=== PATIENT | male | born 1950 | race Caucasian/White ===

== ENCOUNTER 2023-07-06 09:59 | Outpatient (RCR) | payer OTHER, SELFPAY | END 2023-07-06 17:00 | disposition home or self-care (01) | LOC: HO.WCC 09:59 | PROVIDERS: PCP Internal Medicine; Visit Provider Physician Assistant | DX: Z09 Encounter for follow-up examination after completed treatment for conditions other than malignant neoplasm (principal); L85.9 Epidermal thickening, unspecified; L80 Vitiligo; E11.65 Type 2 diabetes mellitus with hyperglycemia; E11.40 Type 2 diabetes mellitus with diabetic neuropathy, unspecified; I10 Essential (primary) hypertension; I48.91 Unspecified atrial fibrillation; I25.2 Old myocardial infarction; Z79.84 Long term (current) use of oral hypoglycemic drugs; Z87.891 Personal history of nicotine dependence; Z86.718 Personal history of other venous thrombosis and embolism | CPT/HCPCS: 99212 ==

== ENCOUNTER 2023-08-30 08:35 | Day surgery (SDC) | payer OTHER, SELFPAY ==
[2023-08-30 08:50] VITALS: BP 180/81; PULSE 98; RESP 18; TEMP 36.3; O2SAT 98; BMI 27.1
[2023-08-30 08:52] LABS: Glucose, Whole Blood 193 mg/dL (60-115)
[2023-08-30] MEDS: Lactated Ringers 1,000 ML 50 ML IVCONT (09:10)
--- NOTE | 2023-08-30 09:13 | HO.ANESPROP2 ---
HPI - Anesthesia Eval Consult details Narrative: 72 yo male patient for Colonoscopy Anesthesia Pre-Procedure Meds Is the patient on any of the following meds?: Semaglutide (Ozempic) (Last dose 08/22/23) and Any other SGL-1 drugs or drugs that delay gastric emptying (Jardiance- last dose 08/27/23) If Yes to any meds - educate patient: Pt education - increased risk of aspiration PMFSH Active Problems Active Problems: CAD with stent about 5 years ago. Denies any chest pain since DM HTN Past Medical History Medical History Diabetes Hyperlipidemia HTN (hypertension) CAD (coronary artery disease) Arrhythmia Family History Family history of problems with anesthesia: No Surgical History Surgical History Hx of heart surgery History of heart artery stent History of Problems with Anesthesia: No Social History Social History Patient Tobacco Use Status: Former Tobacco user Are you DNR?: No Advance Directives: No Advance Directives Information Provided: Yes Recently lost weight without trying: No Nutrition Risks: No Nutritional Risk Meds Allergies Allergy/AdvReac Type Severity Reaction Status Date / Time No Known Allergies Allergy Verified 08/27/23 08:39 Active Medications: Current Medications Lactated Ringer's (Lr) 1,000 mls @ 50 mls/hr IVCONT .Q20H LAUREN Last Admin: 08/30/23 09:10 Dose: 50 mls/hr Sodium Biphosphate/Sodium Phosphate (Sodium Phosphate,[place]-Dibasic 133 Ml Enema) 133 ml VA ONCE PRN PRN Reason: Poor Colonoscopy Prep Results Home Medications ?Medication ?Instructions ?Recorded ?Confirmed ?Last Taken ?Type Fish Oil 08/27/23 08/23/23 History Ozempic 08/27/23 08/22/23 History apixaban 2.5 mg tablet (Eliquis) 2.5 mg PO BID 08/27/23 08/27/23 History aspirin 81 mg capsule 81 mg PO DAILY 08/27/23 08/23/23 History atorvastatin 20 mg tablet 20 mg PO BEDTIME 08/27/23 Unknown History empagliflozin 25 mg tablet 25 mg PO DAILY 08/27/23 08/27/23 History (Jardiance) magnesium 08/27/23 Unknown History metformin 500 mg tablet 500 mg PO DAILY 08/27/23 Unknown History Exam Height,Weight and Vital Signs: Height 5 ft 10 in Weight 85.558 kg Last Vital Signs Temp 97.3 F 08/30/23 08:50 Pulse 98 08/30/23 08:50 Resp 18 08/30/23 08:50 BP 180/81 H 08/30/23 08:50 Pulse Ox 98 08/30/23 08:50 O2 Del Method Room Air 08/30/23 08:50 Pertinent Lab Results Pertinent Lab Results: Laboratory Tests 08/30/23 08:48 POC Glucose 193 H Airway Mallampati Class: III TM Dist: >3cm Neck ROM: Full Loose/Missing/Broken Teeth: Yes (Some missing teeth back. Denies broken or loose teeth ) Heart: RRR Lungs: CTAB Assessment and Plan Assessment Anesthesia Assessment: Anesthesia Plan Discussed and Chart Reviewed Final Anesthetic Review Family History of Problems with Anesthesia: No History of Problems with Anesthesia: No NPO: Yes ASA Class: III Final Preanesthetic Review: No Changes in Pt Med Stat, Meds/Allgs Chart Reviewed, Consent Obtained/Reviewed and Anes Risks/Benef Reviewed Patient Risk: Intermediate Procedure Risk: Low Anesthetic Plan Anesthetic Plan: MAC: and TIVA Disposition: Standard PACU
--- NOTE | 2023-08-30 10:52 | PM.OP ---
Brief Operative Note Date of Service: 08/30/23 Pre-op diagnosis: Screening Post-op diagnosis: other (Diverticulosis) Procedure: Colonoscopy to the cecum and TI Surgeon: Conner Buenrostro MD Anesthesia: MAC Was an Business Liaison Officer used for this Procedure?: No Estimated blood loss (mL): 0 Pathology: none sent Condition: stable Disposition: PACU
[2023-08-30 10:53] VITALS: BP 132/77; PULSE 77; RESP 16; TEMP 36.2; O2SAT 98
[2023-08-30 11:08] VITALS: BP 150/89; PULSE 80; RESP 15; TEMP 36.4; O2SAT 99
--- NOTE | 2023-08-30 11:13 | OP_ITS ---
DATE OF SERVICE: 08/30/2023 SURGEON: Conner Buenrostro MD INDICATIONS: The patient presents for evaluation of colorectal cancer screening and personal history of colon polyps. Full consent has been obtained from him for this, including risks of bleeding and perforation. PREOPERATIVE DIAGNOSIS: POSTOPERATIVE DIAGNOSIS: PROCEDURE PERFORMED: Colonoscopy to cecum and terminal ileum. ESTIMATED BLOOD LOSS: COMPLICATIONS: ANESTHESIA: Monitored anesthesia care. ASSISTANTS: SPECIMENS: PREOPERATIVE DIAGNOSES: Personal history of colon polyps and colorectal cancer screening. POSTOPERATIVE DIAGNOSES: Personal history of colon polyps, colorectal cancer screening, diverticulosis, and internal hemorrhoids. DESCRIPTION OF PROCEDURE: The patient was placed in the left lateral decubitus position. The digital rectal exam revealed no abnormalities. The Olympus video pediatric colonoscope was then entered into the rectum and advanced easily to the cecum. Once in the cecum, I did identify normal-appearing cecal pouch with appendiceal orifice and a normal-appearing ileocecal valve. The terminal ileum was cannulated and appeared normal. The scope was withdrawn back in the colon. The entire cecum and ileocecal valve appeared normal. The scope was then slowly withdrawn assessing all mucosal surfaces carefully. Preparation was excellent. I did not visualize any sign of polyps, colitis, nor angiodysplasia. There was a mild amount of sigmoid diverticulosis. In the rectum, scope was retroflexed visualizing internal hemorrhoids, but no other pathology. The rectal mucosa appeared normal. The scope was straightened and withdrawn from the patient. He tolerated the procedure well and was returned to the recovery area in stable condition. IMPRESSION: 1. Diverticulosis. 2. Internal hemorrhoids. PLAN: Given his previous history of reported polyps, I would recommend a repeat colonoscopy in 5 years. He was advised to resume his Eliquis, aspirin, fish oil, and his usual diabetes medications today. He will see me on a p.r.n. basis. MD GEOVANNY Sandoval/TIMUR / [phone]
== END 2023-08-30 11:43 | disposition home or self-care (01) ==
PROVIDERS: PCP Internal Medicine; Visit Provider Internal Medicine
PROC: 0DJD8ZZ Inspection of Lower Intestinal Tract, Via Natural or Artificial Opening Endoscopic (ICD-10-PCS; CPT 45378; principal; 2023-08-30 11:00)
DX: Z12.11 Encounter for screening for malignant neoplasm of colon (principal); Z86.010 Personal history of colon polyps; K57.30 Diverticulosis of large intestine without perforation or abscess without bleeding; K64.8 Other hemorrhoids; I10 Essential (primary) hypertension; I25.10 Atherosclerotic heart disease of native coronary artery without angina pectoris; Z95.5 Presence of coronary angioplasty implant and graft; E78.5 Hyperlipidemia, unspecified; E11.9 Type 2 diabetes mellitus without complications; Z79.01 Long term (current) use of anticoagulants; Z79.82 Long term (current) use of aspirin; Z79.84 Long term (current) use of oral hypoglycemic drugs; Z79.85 Long-term (current) use of injectable non-insulin antidiabetic drugs
CPT/HCPCS: 45378; 82947; J2704

== ENCOUNTER 2023-09-29 09:11 | Outpatient (AMB) | payer OTHER, SELFPAY ==
--- NOTE | 2023-09-29 09:15 | A.OFFVIS_ITS ---
Vital Signs 09/29/23 09:16 Height 5 ft 10 in Weight 189 lb 4 oz BMI 27.2 BP 142/70 H Blood Pressure Location Rt brachial Position Sitting Pulse 92 Intake Visit Reasons: Pilonidal cystw/o abscess Intake Note: This patient presents for an assessment for Pilonidal cyst w/o abscess. Pt c/o; reports no discharge or drainage. Operation Specialist Required: No Accompanied by: Self / Same As Patient Allergies No Known Allergies Allergy (Verified 09/29/23 09:24) Medication List - Last Reconciled 09/29/23 by Lisandro Howell MD apixaban (Eliquis) 2.5 mg PO BID aspirin 81 mg PO DAILY atorvastatin 20 mg PO BEDTIME empagliflozin (Jardiance) 25 mg PO DAILY [Fish Oil ] [magnesium ] metformin 500 mg PO DAILY [Ozempic ] HPI HPI Pilonidal cystw/o abscess: Details: 72-year-old male referred for a question of a cyst in the sacral coccygeal area. He says that he had fallen on his tailbone about a year and a half ago and has had chronic pain on the area after that accident. For the past few months he had noticed some redness in the area although he does not describe this as a lump. Denies any drainage or fluctuance. He was seen by his primary care physician and was referred to me for question of a cyst. [facility] Medical History (Updated 09/29/23 @ 09:43 by Lisandro Howell MD) Dermatitis Diabetes Hyperlipidemia HTN (hypertension) CAD (coronary artery disease) Arrhythmia Surgical History Hx of heart surgery History of heart artery stent Social History Patient Tobacco Use Status: Former Tobacco user Review of Systems Const Denies chills and Denies fever(s) Card Denies chest pain, Denies dyspnea and Denies dyspnea on exertion Resp Denies cough, Denies dyspnea and Denies dyspnea on exertion GI Denies hematochezia and Denies change in bowel habits Denies hematuria and Denies difficulty urinating Musc Denies back pain and Denies limited range of motion Neuro Denies focal weakness and Denies convulsions Psych Denies depression and Denies mood swings Physical Exam Vital Signs: Last Vital Signs Pulse 92 09/29/23 09:16 BP 142/70 H 09/29/23 09:16 BMI result Body Mass Index 27.2 Const General: comfortable and no acute distress Orientation/consciousness: patient oriented x3 Neck Neck: Yes no lymphadenopathy Resp Auscultation: clear to auscultation bilaterally Cardio Rhythm: regular rhythm GI Palpation (GI): Soft to palpation, nontender and no guarding Back/Spine/Pelvis Other: Sacrococcygeal area examined - no cystic induration seen, no once, no suggestion of a pilonidal cyst or any cystic mass; he does have some redness with in the midline itself without any sinus induration; this appears to be more consistent with dermatitic process Neuro General: patient oriented x3 Assessment & Plan Assessment & Plan (1) Dermatitis: Code(s): L30.9 - Dermatitis, unspecified Category: Medical Plan: He has this small area of redness within the midline of the gluteal cleft at the sacrococcygeal area. This does not appear to represent a pilonidal cyst or any cystic induration. I told him that appears to be more of a dermatitic process. He does not require any surgical excision at this time. I therefore recommended for him to see a track greaser opinion with regards to this as he says that this seems to be bothering him. Coding Level of Care Code New Pt Level 3 (37732) Diagnoses Dermatitis L30.9
[2023-09-29 09:16] VITALS: BP 142/70; PULSE 92; BMI 27.2
== END 2023-09-29 09:55 | disposition home or self-care (01) ==
PROVIDERS: PCP Internal Medicine; Visit Provider Surgery
DX: L30.9 Dermatitis, unspecified (principal)
CPT/HCPCS: 99203

== ENCOUNTER → 2023-09-29 09:11 | Outpatient (BNVA) | payer OTHER, SELFPAY | PROVIDERS: PCP Internal Medicine; Visit Provider Surgery | DX: L30.9 Dermatitis, unspecified (principal) | CPT/HCPCS: 99202 ==